=== PATIENT | female | born 1995 | race Caucasian/White ===

== ENCOUNTER 2024-06-26 08:47 | Emergency (ER) | payer SELFPAY ==
[2024-06-26 08:52] VITALS: BP 116/51; PULSE 89; RESP 18; TEMP 36.6; O2SAT 100
--- OUTSIDE RECORDS SUMMARY | 2024-06-26 08:58 | XMS_ITS | Clinical Summary ---
Author Organization [facility] [email or web address] Address [address] [place] [address] Phone Care Team Providers Care Ship Laborer Name Role Phone Tam Finney MD Primary Care Provider + Allergies Active Allergy Reactions Criticality Noted Date Comments Amoxicillin Swelling,Rash Medium Medications PARoxetine (PAXIL) 10 mg tabletIndication s:Anxiety disorder, unspecified type Take 1 tablet (10 mg total) by mouth every morning 30 tablet 5 02/06/2022 Active Active Problems Problem Noted Date Diagnosed Date Anxiety disorder 12/29/2021 Resolved Problems Problem Noted Date Diagnosed Date Resolved Date Anemia during in third trimester 04/10/2021 12/29/2021 Encounter for general rafael holder and advice on contraceptive management 03/30/2021 08/23/2021 Overview (06/20/2021): Considering sterilization. Has difficulty with daily pill use. Had recurrent vaginitis with IUD in the past. Discussed risks/benefits of alternative options including Nexplanon, vasectomy and immediate v delayed tubal. She elects for sterilization. Tubal papers signed 06/20/21. Plan for delayed laparoscopic salpingectomy. Term delivered 07/27/2017 Cervical discharge 04/07/2014 7 Overview (09/01/2016): Discharge from cervix Immunizations Name Administration Dates Next Due DTaP 03/09/2014, 9,11/23/1994,01/12,1993 HPV, Quadrivalent 10/05/2014,06/02/2014,04/07/20 14 Hep B, Adolescent or Pediatric 03/09/1994,1993,1993 Hib (PRP-OMP) 06/25/1994, 4,01/12/1994,11/03 IPV 01/06/1999, 5,01/12/1994,11/03 Influenza, Quadrivalent, Spl it, Preservative Free, Intramuscular 03/09/2019 Influenza, Split 04/02/2013 Influenza, Trivalent, Recomb inant, Egg Free, Preservative Free, Antibiotic Free, IM (FLUBLOK) 04/07/2014 MMR 07/27/2017(Deferred: Contraindication),01/06/1999, 5 Meningococcal MCV4P (Menactra) 05/23/2011,2007 Tdap 03/09/2019,07/26/2017,11/28/2006 Varicella 01/02/2008,01/18/1995 Surgical History Surgery Date Site/Laterality Comments WISDOM TOOTH EXTRACTION 05/27/2007 - 05/26/2008 SALPINGECTOMY 05/27/2021 - 05/26/2022 Bilateral Laparoscopic salpingectomy - sterilization Medical History Medical History Date Comments Healthy adult on routine physical examination Family History Medical History Relation Name Comments Diabetes Father Hypertension Father Diabetes Father's Brother Diabetes Maternal Grandfather Heart attack Maternal Grandfather Hypertension Maternal Grandfather Transient ischemic attack Maternal Grandfather Hypertension Maternal Grandmother Stroke Maternal Grandmother Diabetes Paternal Grandfather Relation Name Status Comments Father Father's Brother Maternal Grandfather Maternal Grandmother Paternal Grandfather Social History Tobacco Use Types Packs/Day Years Used Date Smoking Tobacco: Never Smokeless Tobacco: Never Tobacco Cessation:Counseling Given: Yes Alcohol Use Standard Drinks/Week Comments Not Currently 0 (1 standard drink = 0.6 oz pur e alcohol) beer on weekends AUDIT-C Answer Date Recorded Q1: How often do you have a drink containing alc ohol? 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 Not on file Not on file Obstetrics History Para Term AB IAB SAB Ectopic Multiple Livin g Live Births 3 3 3 0 0 0 0 0 0 3 3 Date Outcome GA Total Labor Labor/2nd/3rd Weight Sex Type Anes PTL Hailey A1 A5 Name Clin 2017 Term 39w 3d 8h 20m 4h 50m/3h 16m/0h 14m 3.47 kg (7 lb 10.4 oz) F Vag-S pont Epidur al N Livin g 9 9 STEWA RT,GI Jose Antonio Jeffery MD Complications:None Delivery Location:[facility] Fac[facility] ([facility]) 2018 Term 40w 0d 4h 21m 3h 33m/0h 45m/0h 03m 3.616 kg (7 lb 15.6 oz) F Vag-S pont Epidur al N Livin g 8 9 STEWA RT,Anahi Sanabria MD Complications:None Delivery Location:This Facil [facility]y ([facility]) 2021 Term 39w 0d 1h 37m 1h 15m/0h 17m/0h 05m 3.658 kg (8 lb 1 oz) F Vag-S pont Epidur al N Livin g 9 9 STEWA RT,Anahi Sanabria MD Complications:Precipitous La bor (<3 hours) Delivery Location:This Facil [facility] ([facility]) Comments 2017 - Labor, . [facility]. 2018 - elective pitocin induction. . [facility]. 3. 2021 - elective pitocin induction. PPH s/p methergine x 1. Last Filed Vital Signs Vital Sign Reading Time Taken Comments Blood Pressure 102/70 02/06/2022 9:19 AM CDT Pulse 50 08/11/2021 10:09 AM CDT Temperature 35.7 ??C (96.2 ??F) 08/11/2021 9:30 AM CD T Respiratory Rate 20 08/11/2021 10:09 AM CDT Oxygen Saturation 100% 08/11/2021 10:09 AM CDT Inhaled Oxygen Concentration - - Weight 64.9 kg (143 lb) 02/06/2022 9:19 AM CDT Height 170.9 cm (5' 7.3 ) 12/29/2021 1:52 PM CDT Body Mass Index 22.2 12/29/2021 1:52 PM CDT Plan of Treatment Health Maintenance Due Date Last Done Comments Depression Screening 1995 Cervical Cancer Screening 09/08/20212020, 09/20/2017, 06/25/2016, Additional history exists Regular Well Visit/Exam 18-64 09/08/2021 09/08/2020 Influenza Vaccine (#1) 2024 9, 04/07/2014, 04/02/2013 DTaP/Tdap/Td Vaccine (9 - Td or Tdap) 03/09/2029 03/09/2019, 07/26/2017, 03/09/2014, Additional history exists Varicella Vaccines Completed 01/02/2008, 01/18/1995 HPV Vaccines Completed 10/05/2014, 11/2014, 04/07/2014 Hepatitis C Screening Completed 12/27/2020 , 11/08/2018, 12/17/2016 Pneumococcal vaccine <65 Aged Out No longer eligible based on patient's age to complete this topic Procedures Procedure Name Priority Date/Time Associated Diagnosis Comments HEPATITIS C ANTIBODY Routine 12/27/2020 11:19 AM CDT care, subsequent , first trimester with 8 completed weeks gestation PAP AND HIGH RISK HPV, REFLEX TO GENOTYPING Routine 09/08/2020 9:27 AM CDT from Last 3 Months or Most Recently Relevant to Health Maintenance Results * Hepatitis C antibody (12/27/2020 11:19 AM CDT) Hep C Ab NON-REACTI VE NON-REACT NAYELY [facility] SIGNAL TO CUT-OFF 0.04 <1.00 [facility] Comment: HCV antibody was non-reactive. There is no laboratory evidence of HCV infection. In most cases, no further action is required. However, if recent HCV exposure is suspected, a test for HCV RNA (test code 52824) is suggested. For additional information please refer to http://education.[employer]/faq/YVC10d8 (This link is being provided for informational/ educational purposes only.) Blood specimen (specimen) 12/27/2020 11:19 AM CDT 12/27/2020 11:20 AM CDT Narrative [facility] - 12/28/2020 8:24 PM CDT PATIENT UNABLE TO VOID; ADVISED TO RETURN FOR COLLECTION. us Anahi Angel MD LAB MICROBIOLOGY - [facility] ORDERABLES Final Result [facility] [address] [place] [address] * Pap and High Risk HPV, reflex to Genotyping (09/08/2020 9:27 AM CDT) Pap test 09/08/2020 9:27 AM CDT 09/08/2020 9:27 AM CDT Narrative 09/15/2020 10:01 AM CDT [facility] Department of Pathology [address] [place], [place] [id number] Final Report Patient Name: ??SENTHILHODAN Address: ??[address] [place] [address], ?? [place], [place] [address] Gender: ??F : ??1995 (Age: 25) Service: ??Laboratory Location: ??Lab Hospital #: ??[id number] Patient Type: ?? Ref Lab Taken: ??09/08/2020 Received: ??09/08/2020 Accessioned:: ??09/09/2020 Reported: ??09/15/2020 Physician(s): LEI Reno WHNP Diagnosis: Source of Specimen: ? SCREENING THIN PREP IMAGED PAP w/ Reflex HPV Specimen Adequacy: ?- Satisfactory for evaluation; endocervical/transformation zone component present General Category: ?- Negative for intraepithelial lesion or malignancy ?? ANGELO Silva(ASCP) Report Electronically Reviewed and Signed Out By ??ANGELO Silva(ASCP) ??09/15/2020 10:01:35 ??Specimen(s) Received: A: SCREENING THIN PREP IMAGED PAP w/ Reflex HPV Clinical History: Last Menstrual Period: 09/04/2020 Contraceptive History: Oral Contraceptives The Pap test is a screening test used to aid in the detection of cervical cancer and its precursors. ??It should not be the sole means by which malignant and premalignant lesions are diagnosed. ??Both false negative and false positive results may occur. ?? It also has poor sensitivity for the detection of endometrial lesions and should not be used to evaluate suspected endometrial abnormalities. ??For these reasons it is most important to obtain Pap tests at regular intervals. The performance characteristics of some immunohistochemical stains, fluorescence in-situ hybridization tests and immunophenotyping by flow cytometry cited in this report (if any) were determined by the Surgical Pathology Department at [facility] as part of an ongoing quality assurance specialist program and in compliance with federally mandated regulations drawn from the Clinical Laboratory Improvement Act of 1988 (CLIA '88). ??Some of these tests rely on the use of analyte specific reagents and are subject to specific labeling requirements by the US Food and Drug Administration. ??Such diagnostic tests may only be performed in a facility that is certified by the Department of Health and Human Services as a high complexity laboratory under CLIA '88. The FDA has determined that such clearance or approval is not necessary. ??This test is used for clinical purposes. ??It should not be regarded as investigational or for research. ??Nevertheless, federal rules concerning the medical use of analyte specific reagents require that the following disclaimer be attached to the report: This test was developed and its performance characteristics determined by the Surgical Pathology Department [facility]. ??It has not been cleared or approved by the U. S. Food and Drug Administration. Starla R. Jack JERKER LAB CYTOLOGY ORDERABLES F inal Result from Last 3 Months or Most Recently Relevant to Health Maintenance Insurance [facility] Advance Directives For more information, please contact: [phone] * Full Code (Latest Code Status on File) Date Activated Date Inactivated Comments 06/26/2021 4:00 PM 06/27/2021 8:47 PM * Full Code Date Activated Date Inactivated Comments 06/26/2021 6:58 AM 06/26/2021 4:00 PM Full CPR in case of cardiopulmonary arrest * Full Code Date Activated Date Inactivated Comments 05/25/2019 1:17 PM 05/26/2019 8:57 PM * Full Code Date Activated Date Inactivated Comments 05/25/2019 5:52 AM 05/25/2019 1:17 PM Full CPR i n case of cardiopulmonary arrest * Full Code Date Activated Date Inactivated Comments 07/26/2017 3:45 AM 07/27/2017 6:07 PM Full CPR in ca se of cardiopulmonary arrest Care Teams Ship Laborer Relationship Specialty Start Date End Date Tam Finney MD [address] [place] [place] [address] PCP - General 10/05/14
--- OUTSIDE RECORDS SUMMARY | 2024-06-26 08:58 | XMS_ITS | Referral Summary ---
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 For additional information please refer to http://education.[employer]/faq/AXH22n2 (This link is being provided for informational/ educational purposes only.) Blood specimen (specimen) 12/27/2020 11:19 AM CDT 12/27/2020 11:20 AM CDT Narrative [facility] - 12/28/2020 8:24 PM CDT PATIENT UNABLE TO VOID; ADVISED TO RETURN FOR COLLECTION. us Anahi Angle MD LAB MICROBIOLOGY - [facility] ORDERABLES Final Result [facility] [address] [place] [address] * Pap and High Risk HPV, reflex to Genotyping (09/08/2020 9:27 AM CDT) Pap test 09/08/2020 9:27 AM CDT 09/08/2020 9:27 AM CDT Narrative 09/15/2020 10:01 AM CDT [facility] Department of Pathology [address] [place], [place] [id number] Final Report Patient Name: ??HODAN MOSSLois Address: ??[address] [place] [address], ?? [place], [place] [address] Gender: ??F : ??1995 (Age: 25) Service: ??Laboratory Location: ??Lab Hospital #: ??[id number] Patient Type: ?? Ref Lab Taken: ??09/08/2020 [...] determined by the Surgical Pathology Department at [facility] as part of an ongoing cloth tester quality program and in compliance with federally mandated [...] characteristics determined by the Surgical Pathology Department [facility]. ??It has not been cleared or approved by the U. S. Food and Drug Administration. Starla Santiago NP LAB CYTOLOGY ORDERABLES F inal Result from Last 3 Months or Most Recently Relevant to Health Maintenance Insurance [email or web address] [facility] Advance Directives For more information, please contact: [phone] * Full Code (Latest Code Status on [...] ca se of cardiopulmonary arrest Care Teams Top Dyeing Machine Loader Relationship Specialty Start Date End Date Tam Finney MD [address] [place] [address] PCP - General 10/05/14
--- OUTSIDE RECORDS SUMMARY | 2024-06-26 08:58 | XMS_ITS | Clinical Summary ---
Author Organization [facility] Address [address] [address] Phone Care Team Providers Care Chaplain Resident Name Role Phone Bubba Holden MD Primary Care Provider [phone] Allergies Active Allergy Reactions Criticality Noted Date Comments Amoxicillin Rash,Swelling Medium 03/15/2023 Medications No known medications Active Problems No known active problems Immunizations Immunization Administration Dates Next Due DTAP VACCINE 03/09/2014, 9,11/23/1994,01/12,1993 Hepatitis B Vaccine, Pediatric/adolescent 03/09/1994,1993,1993 Hib (PRP-OMP) Vaccine 06/25/1994, 994,01/12/1994,11/03 Human Papillomavirus Vaccine (HPV), quadrivalent 10/05/2014,06/02/2014,04/07/2014 Inactivated Polio Vaccine 01/06/1999,,01/12/1994,11/03 Influenza Vaccine, Quadrivalent, PF 03/09/2019 Influenza, recombinant, trivalent, PF 04/07/2014 MMR Vaccine 01/06/1999,11/23/1994 Meningococcal Vaccine 05/23/2011,01/02/2008 TDAP Vaccine 03/09/2019,07/26/2017,11/28/2006 Varicella Vaccine Live 01/02/2008,01/18/1995 Family History Medical History Relation Name Comments Diabetes Father No Known Problems Mother Diabetes Sister 1 No Known Problems Sister 2 Relation Name Status Comments Father Alive Mother Alive Sister 1 Alive Sister 2 Alive Social History Tobacco Use Types Packs/Day Years Used Date Smoking Tobacco: Never Smokeless Tobacco: Never Tobacco Cessation:Counseling Given: Not Answered Alcohol Use Standard Drinks/Week Comments Never 0 (1 standard drink = 0.6 oz pur e alcohol) Sexually Active Control Partners Comments Yes Surgical Male Comments Unknown Sex and Gender Information Value Date Recorded Sex Assigned at Female 01/07/2023 3:12 PM CDT 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 Gender Identity Female 01/07/2023 3:12 PM CDT Sexual Orientation Not on file Last Filed Vital Signs Vital Sign Reading Time Taken Comments Blood Pressure 90/58 03/15/2023 1:38 PM CDT Pulse 65 03/15/2023 1:38 PM CDT Temperature 36.6 ??C (97.9 ??F) 03/15/2023 1:38 PM CD T Respiratory Rate 16 03/15/2023 1:38 PM CDT Oxygen Saturation 100% 03/15/2023 1:38 PM CDT Inhaled Oxygen Concentration - - Weight 65.8 kg (145 lb) 03/15/2023 1:38 PM CDT Height 175.3 cm (5' 9 ) 03/15/2023 1:38 PM CDT Body Mass Index 21.41 03/15/2023 1:38 PM CDT Plan of Treatment Health Maintenance Due Date Last Done Comments HPV/Cotest 09/06/2023 Cervical Cancer Screening ([facility]) 09/09/2023 Pap Smear 09/09/2023 09/08/2020 DTaP/Tdap/Td Immunization (9 - Td or Tdap) 03/09/2029 03/09/2019, 07/26/2017, 03/09/2014, Additional history exists Respiratory Syncytial Virus (RSV) Immunization (Adult) (1 - 1-dose 75+ series) 2068 Hepatitis B Immunization Completed 994, 1995, 1993 Meningococcal Immunization (ACWY) Completed 05/23/2011, 01/02/2008 Influenza Immunization Discontinued 03/09/2019, 2013 Hepatitis C Virus (HCV) Screening Completed 12/27/2020 Pneumococcal Immunization Combined Aged Out No longer eligible based on patient's age to complete this topic Rotavirus Immunization Aged Out No lo nger eligible based on patient's age to complete this topic SARS-COV-2 Immunization Discontinued Insurance MEDICAID [employer] Care Teams Chaplain Resident Relationship Specialty Start Date End Date Bubba Holden MD [address] [place] [address] PCP - General Family Medicine 03/15/23
--- NOTE | 2024-06-26 10:16 | ED.URI ---
HPI - URI/Sore Throat General Stated Complaint: throat History of Present Illness HPI Narrative: patient is a 28-year-old female, without significant past medical history, presents to [facility] with 24 history of sore throat, slight cough, body aches and chills, without known sick contacts or strep exposures. She is taking txxl-[id number]-ulqjacm Tylenol for discomfort. She denies any additional modifying factors. She is not . Review of Systems Constitutional: Constitutional: Reports as per HPI ENT: Reports as per HPI Respiratory: Respiratory: Reports as per HPI Exam Const: General: cooperative, healthy appearing, comfortable and no acute distress Nutritional Appearance: average body habitus Orientation/consciousness: oriented to person, oriented to place, oriented to time and patient oriented x3 Limitations: no limitations HENMT: Head: normal to inspection, No palpable skull fracture present and normocephalic Ears: hearing grossly normal bilaterally, external ears normal and TM abnormal ( Serous pattern bilaterally) Face and sinus: normal facial exam, sinuses nontender and face symmetric Mouth: Yes Normal oral and palatal mucosa present, Yes lip normal, Yes tongue normal and Yes oropharynx normal Teeth and gingiva: dentition normal and gingiva normal Throat: posterior oropharynx normal, tonsils normal and uvula midline Eyes: General: appearance normal, both eyes and all related structures Visual Mackey: normal visual mackey by confrontation Alignment and Position: alignment normal Eyelids: eyelids normal Neck: Neck: normal visual inspection, full ROM, no lymphadenopathy, no meningeal signs and trachea midline Thyroid: thyroid normal Resp: Effort & Inspection: normal respiratory effort Auscultation: clear to auscultation bilaterally Cardio: Palpation: normal PMI Rate: regular rate Rhythm: regular rhythm Heart sounds: S1 normal heart sound present and S2 normal heart sound present Back/Spine/Pelvis: Cervical Spine: normal cervical lordosis Skin: General skin exam: normal color Lesions: no lesions Rashes: no rashes Trauma: no lacerations or abrasions Neuro: General: oriented to person, oriented to place, oriented to time, patient oriented x3, gait normal, tone normal, moves all extremities, no meningeal signs, no focal motor deficits and CN's II-XI intact bilaterally Course Course Emergency Course: rapid strep is negative, will reflex culture, likely URI that is viral in nature given symptoms, low Centor score, will defer antibiotic treatment at this time. Patient is encouraged to push fluids, take [id number]-[id number]-hirjteg cold medications and Delsym for cough suppression, follow-up with PCP in 3-5 days if symptoms not resolving. Patient is agreeable plan Level of Care: [facility] Care Visit ([id number]) Vital Signs Vital signs: Vital Signs Temperature 36.6 C 06/26/24 08:52 Pulse Rate 89 06/26/24 08:52 Respiratory Rate 18 06/26/24 08:52 Blood Pressure 116/51 L 06/26/24 08:52 Pulse Oximetry 100 06/26/24 08:52 Oxygen Delivery Room Air 06/26/24 08:52 Temperature 36.6 C 06/26/24 08:52 Pulse Rate 89 06/26/24 08:52 Respiratory Rate 18 06/26/24 08:52 Blood Pressure 116/51 L 06/26/24 08:52 Pulse Oximetry 100 06/26/24 08:52 Oxygen Delivery Room Air 06/26/24 08:52 MDM - URI/Sore Throat MDM Narrative Medical decision making narrative: OTC cough cold medications, supportive care Differential Diagnosis Differential diagnosis: Likely upper respiratory infection, croup, sinusitis, viral infection, influenza and pharyngitis Discharge Plan Discharge Clinical Impression: Upper respiratory infection, viral Patient Disposition: Home, Self-Care Condition: Stable Instructions: Antibiotic Form, Upper Respiratory Infection (ED) Additional Instructions: PUSH FLUIDS AND REST, FOLLOW UP CLOSELY WITH YOUR PRIMARY DOCTOR IN 3-5 DAYS IF SYMPTOMS NOT STARTING TO IMPROVE. [id number] WILL PROVIDE COUGH SUPPRESSION, ALTERNATE TYLENOL AND IBUPROFEN DIRECTED [id number] FOR FEVER REDUCTION AND BODY ACHES/CHILLS. GOOD HAND WASHING TO PREVENT SPREAD OF INFECTION. Patient Language: Gibraltarian Follow-up/Referrals: PHYSICIAN,MARKETING PLANNER [Primary Care Provider] - Time of Disposition: 10:21
[2024-06-26 10:17] LABS: EDSTREPNEGPOS1 Negative (Negative)
== END 2024-06-26 10:29 | disposition home or self-care (01) ==
PROVIDERS: Emergency Provider Nurse Practitioner Family
DX: J06.9 Acute upper respiratory infection, unspecified (principal)
CPT/HCPCS: 87081; 87880; 99203; G0463